=== PATIENT | female | born 1955 | race Caucasian/White ===

== ENCOUNTER → 2022-02-07 11:09 | Outpatient (CLI) | payer MEDICARE, OTHER, SELFPAY ==
[2022-02-09 12:29] LABS: AFB Specimen Processing Concentration (.)
== END ==
PROVIDERS: PCP Student in an Organized Health Care Education/Training Program; Referring Provider Internal Medicine; Visit Provider Internal Medicine
DX: R05.3 Chronic cough (principal); J47.9 Bronchiectasis, uncomplicated; R50.9 Fever, unspecified
CPT/HCPCS: 87556; 87798

== ENCOUNTER → 2022-02-08 11:12 | Outpatient (CLI) | payer MEDICARE, OTHER, SELFPAY | PROVIDERS: PCP Student in an Organized Health Care Education/Training Program; Referring Provider Internal Medicine; Visit Provider Internal Medicine | DX: R05.3 Chronic cough (principal); J47.9 Bronchiectasis, uncomplicated | CPT/HCPCS: 87116; 87206 ==

== ENCOUNTER → 2022-02-09 10:11 | Outpatient (CLI) | payer MEDICARE, OTHER, SELFPAY | PROVIDERS: PCP Student in an Organized Health Care Education/Training Program; Referring Provider Internal Medicine; Visit Provider Internal Medicine | DX: R05.3 Chronic cough (principal); J47.9 Bronchiectasis, uncomplicated | CPT/HCPCS: 87116; 87206 ==

== ENCOUNTER → 2022-02-10 11:28 | Outpatient (CLI) | payer MEDICARE, OTHER, SELFPAY | PROVIDERS: PCP Student in an Organized Health Care Education/Training Program; Referring Provider Internal Medicine; Visit Provider Internal Medicine | DX: R05.3 Chronic cough (principal); J47.9 Bronchiectasis, uncomplicated | CPT/HCPCS: 87116; 87206 ==

== ENCOUNTER 2022-11-01 09:52 | Day surgery (SDC) | payer MEDICARE, OTHER, SELFPAY ==
--- NOTE | 2022-11-01 | PATH_ITS ---
[facility] Accession Number: [id number] No. of containers..02 Tissue . 01 Material submitted: . PART A: gastrointestinal site - GASTRIC BIOPSY PART B: colon - SIGMOID POLYP . 01 Diagnosis: A. Stomach, Biopsy: Body type mucosa with mild chronic gastritis. No evidence of Helicobacter organisms on H/E stain. Negative for intestinal metaplasia. Negative for dysplasia or malignancy. . B. Sigmoid Colon, Polyp, Biopsy: Hyperplastic polyp. [facility] 11/04/2022 1115 Local . 01 Comment: A. An immunohistochemical stain will be performed to evaluate for Helicobacter organisms and the results reported as an addendum. . 01 Electronically signed: . Lori Lovell MD, Pathologist NPI- [id number] . 01 Gross description: . Part A: GASTRIC BIOPSY: Received in formalin is 1 fragment(s) of colbert, soft tissue measuring 0.2 x 0.2 x 0.1 cm submitted entirely in 1 cassette(s) Part B: SIGMOID POLYP: Received in formalin is 1 fragment(s) of colbert, soft tissue measuring 0.2 x 0.2 x 0.1 cm submitted entirely in 1 cassette(s) /MONIK 11/02/20222031 Local . 01 Pathologist provided ICD-10: D50.9, K63.5 . 01 CPT . 211420, 465469, [id number] [facility]formed at: 01 [facility] [address] [place] [address], [place], [place] [id number] MD Dave Ruvalcaba MD Phone: [phone]
[2022-11-01 10:29] VITALS: BP 152/77; PULSE 62; RESP 18; TEMP 36.6; O2SAT 96; BMI 29.8
[2022-11-01] MEDS: LACTATED RINGERS 1,000 ML 200 ML IV (10:49)
--- NOTE | 2022-11-01 11:07 | PM.HP.1 ---
History of Present Illness History of Present Illness Date Patient Seen: 11/01/22 Time Patient Seen: 11:08 Chief complaint: Colonoscopy & EGD w/poss bx's Narrative: 67-year-old woman with anemia of unknown etiology here for diagnostic esophagoduodenoscopy and colonoscopy. No interval changes in health. Please refer to the H and P from August 2022 further detail. PFSH Medical History Bronchiectasis Hypertension Hypothyroidism Low iron Osteoarthritis Pneumothorax Pre-diabetes Trigger thumb Vitamin D deficiency Surgical History History of bladder surgery History of carpal tunnel surgery Family History Father Hypertension Heart disease Diabetes mellitus Daughter Gallstones Grandmother Hypertension Heart disease Grandfather Hypertension Heart disease Stomach cancer Mother Stroke Aunt Breast cancer Family/Other Breast cancer Social History marital status: household members: spouse lives independently: Yes occupational status: previously employed Smoking Status: Never smoker alcohol intake: never substance use type: does not use Meds Home Medications and Allergies Home Medications Medication Instructions Recorded Confirmed Type citalopram 20 mg tablet 20 mg PO DAILY 09/23/22 11/01/22 History fexofenadine 180 mg tablet 180 mg PO DAILY 09/23/22 11/01/22 History fluticasone propionate 115 2 puff inhalation BID 09/23/22 11/01/22 History mcg-salmeterol 21 mcg/actuation HFA inhaler (Advair HFA) hydrochlorothiazide 25 mg tablet 25 mg PO DAILY 09/23/22 11/01/22 History levothyroxine 150 mcg capsule 150 mcg PO DAILY 09/23/22 11/01/22 History multivitamin 1 tab PO DAILY 09/23/22 11/01/22 History omega-3 fatty acids [Fish Oil] PO 09/23/22 09/23/22 History simvastatin 20 mg tablet 20 mg PO DAILY 09/23/22 11/01/22 History Allergies Allergy/AdvReac Type Severity Reaction Status Date / Time No Known Drug Allergies Allergy Verified 11/01/22 10:29 Exam Vital Signs (past 8 hours): - 11/01/22 10:29 Temperature 98 F Pulse Rate 62 Respiratory Rate 18 Blood Pressure 152/77 H Pulse Oximetry 96 Oxygen Delivery Method Room Air Oxygen Delivery Method Room Air Narrative Exam Narrative: General adult woman alert oriented no acute distress Abdomen soft nontender nondistended Assessment & Plan Assessment and plan (1) Iron deficiency anemia: Qualifiers: Iron deficiency anemia type: unspecified iron deficiency Qualified Code(s): D50.9 - Iron deficiency anemia, unspecified Status: Acute Assessment & Plan narrative: 67-year-old woman with iron deficiency anemia here for diagnostic esophagoduodenoscopy and colonoscopy. Overview of these procedures were discussed with the patient. Procedural risks including hemorrhage, infection, missed diagnosis, intestinal injury were discussed. Questions have been answered and he is in agreement with this plan. She provides her written and verbal consent to proceed.
[2022-11-01 12:19] VITALS: BP 138/70; PULSE 59; RESP 14; TEMP 36.4; O2SAT 97
[2022-11-01 12:24] VITALS: BP 145/76; PULSE 57; RESP 14; O2SAT 98
--- NOTE | 2022-11-01 12:25 | PM.OP.EC ---
Operative Date/Time/Diagnoses Date of procedure: 11/01/22 Time of procedure: 12:25 Pre-op diagnosis: Anemia Post-op diagnosis: other (Gastritis, colonic polyp x1) Procedure & Clinicians Study performed: Esophagoduodenoscopy and colonoscopy. Same procedure as scheduled: Yes Indications: Anemia of unknown etiology Surgeon: Leonardo Sanders Procedure Notes Procedure in detail: The history and physical was performed/updated and the patient is ASA class is 2. The procedure was discussed in detail with the patient. Potential risks complications including infection, bleeding, missed diagnosis, perforation, need for surgery, and were explained. Their questions were answered and informed consent was obtained. Patient placed in left lateral decubitus position. Time out was performed. Procedural sedation was administered by Anesthesia. A bite block was placed. the scope was inserted into the mouth and advanced through the esophagus and into the stomach. The stomach was notable for gastritis within the body. No distinct ulcer or active hemorrhage. Biopsy of the gastritis was performed with forceps. The pylorus was intubated and the duodenum was normal to the 2nd portion. The scope was retroflexed within the stomach and there was no hiatal hernia. The scope was withdrawn into the esophagus the Z line was seen at 35 cm from the incisions. There was no Anna's esophagitis, esophageal masses or strictures. Stomach was desufflated and scope removed. Examination began with a thorough inspection of the perianal area there was no evidence of fissures, fistulae, external hemorrhoids or cutaneous malignancy. The colonoscopy scope was then placed into the anal canal and was advanced to the cecum, which was identified by the ileocecal valve, the appendiceal orifice and the confluence of the taenia. The scope was then slowly withdrawn examining colon thoroughly in all directions, irrigating it of any residual stool. Within the sigmoid colon there was a 5 mm polyp which was removed with biopsy forceps. The ascending and transverse colon were particularly tortuous requiring external compression and scope stiffener. The patient tolerated the procedure well. They will be discharged once criteria are met. The prep was of good/excellent quality. The withdrawl time [id number]. Findings: gastritis and polyp Specimen(s): other (Gastric biopsy, sigmoid colonic polyp) Impression: Gastritis and colonic polyps Post-procedure Plan for aftercare: Start omeprazole 20 mg daily x1 month. Colonoscopy follow-up is dependent on pathology findings Disposition: same day surgery
[2022-11-01 12:30] VITALS: BP 130/70; PULSE 58; RESP 18; TEMP 36.7; O2SAT 98
[2022-11-01 12:31] VITALS: BP 149/64; PULSE 54; RESP 16; O2SAT 99
== END 2022-11-01 12:44 | disposition home or self-care (01) ==
PROVIDERS: PCP Family Medicine; Referring Provider Surgery; Visit Provider Surgery
PROC: 0DJ08ZZ Inspection of Upper Intestinal Tract, Via Natural or Artificial Opening Endoscopic (ICD-10-PCS; CPT 43235; principal; 2022-11-01 11:15)
PROC: 0DJD8ZZ Inspection of Lower Intestinal Tract, Via Natural or Artificial Opening Endoscopic (ICD-10-PCS; CPT 45378; 2022-11-01 11:15)
DX: D50.9 Iron deficiency anemia, unspecified (principal); K63.5 Polyp of colon; K29.50 Unspecified chronic gastritis without bleeding; E03.9 Hypothyroidism, unspecified; I10 Essential (primary) hypertension
CPT/HCPCS: 45380; 43239; J2704; J3010